=== PATIENT | female | born 1995 | race African-American/Black ===

== ENCOUNTER 2016-07-15 12:37 | Emergency (ER) | payer OTHER ==
[2016-07-15 12:46] VITALS: BP 127/80; PULSE 84; TEMP 98.2; BMI 26.6
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
== END 2016-07-15 14:42 | disposition home or self-care (01) ==
LOC: JERFT 12:37
DX: M79.5 Residual foreign body in soft tissue (principal); Z18.10 Retained metal fragments, unspecified; Z87.828 Personal history of other (healed) physical injury and trauma
CPT/HCPCS: 73090-TC-RT; 84703; 99281-25

== ENCOUNTER 2020-07-26 19:00 | Inpatient (IN) | payer OTHER ==
[2020-07-26] MEDS ORDERED: BUTORPHANOL TARTRATE 1 MG/ML VIAL IVPB PRN (20:02)
[2020-07-26] MEDS ORDERED: ELECTROLYTE-148 SOLN 1,000 ML IV SCH (20:15)
[2020-07-26 20:44] VITALS: BMI 37.4
[2020-07-26] MEDS ORDERED: OXYTOCIN 30 UNITS in 0.9% NS 30 UNIT/500 ML INFUS.BAG IVPB ONE (21:21)
[2020-07-26 21:43] LABS: BASO % 0.3 % (0-2.0); EOS % 1.1 % (0-4.5); HEMATOCRIT 36.4 % (32.4-45.2); LYMPH % 20.3 % (8-40); MCH 27.2 pg (25.7-33.7); MCHC 33.1 g/dl (32.0-36.0); MEAN CELL VOLUME 82.2 fl (80-96); MEAN PLT VOLUME 9.6 fl (7.5-11.1); MONO % 7.6 % (3.8-10.2); NEUT % 70.7 % (42.8-82.8); PLATELET COUNT 231 K/MM3 (134-434); RBC 4.43 M/mm3 (3.60-5.2); RDW 16.2 % (11.6-15.6)
[2020-07-26] MEDS ORDERED: OXYTOCIN 30 UNITS in 0.9% NS 30 UNIT/500 ML INFUS.BAG IVPB SCH (21:45)
[2020-07-26 21:57] LABS: INR 0.92 (0.83-1.09); PROTHROMBIN TIME (PATIENT) 11.3 SEC (9.7-13.0)
[2020-07-26 22:00] LABS: ACTIVATED PTT 28.3 SECONDS (25.2-36.5)
[2020-07-26 22:02] LABS: CALCIUM 8.4 mg/dL (8.5-10.1)
[2020-07-26 22:06] LABS: CREATININE 0.5 mg/dL (0.55-1.3)
[2020-07-27] MEDS ORDERED: AMPICILLIN SODIUM 2 GM VIAL ONE (01:45)
[2020-07-27] MEDS ORDERED: AMPICILLIN SODIUM 2 GM VIAL IVPB ONE (01:45)
[2020-07-27] MEDS ORDERED: BUTORPHANOL TARTRATE 2 MG/ML VIAL ONE (02:51)
[2020-07-27] MEDS ORDERED: FENTANYL/BUPIVACAINE/NS/PF - PCEA - 50 ML DISP.SYRIN EP ONE ×2 (04:29→09:32)
[2020-07-27] MEDS ORDERED: PCA PUMP NR ONE ×2 (04:29→09:32)
[2020-07-27] MEDS ORDERED: BUPIVACAINE HCL/PF 0.25% (2.5MG/ML) 10 ML VIAL ONE (04:46)
[2020-07-27] MEDS: FENTANYL/BUPIVACAINE/NS/PF - PCEA - 50 ML DISP.SYRIN EP SCH ×2 (05:00→09:35)
[2020-07-27] MEDS ORDERED: NALOXONE HCL 0.4 MG/ML VIAL IVPUSH PRN (05:06)
[2020-07-27] MEDS ORDERED: AMPICILLIN SODIUM 1 GM VIAL ONE ×2 (05:45→09:04)
[2020-07-27] MEDS: AMPICILLIN SODIUM 1 GM VIAL IVPB SCH ×2 (05:48→09:11)
[2020-07-27] MEDS ORDERED: OXYTOCIN 20 UNITS in 0.9% NS 20 UNIT/1,000 ML INFUS.BAG IV ONE (08:55)
[2020-07-27] MEDS ORDERED: SODIUM CHLORIDE 100 ML IVPB ONE (09:04)
[2020-07-27] MEDS ORDERED: BENZOCAINE 20% 57 GM BOTTLE TP PRN (09:11)
[2020-07-27] MEDS ORDERED: BISACODYL 10 MG SUPP.RECT PR PRN (09:11)
[2020-07-27] MEDS ORDERED: METHYLERGONOVINE MALEATE 0.2 MG/1 ML AMP IM PRN (09:11)
[2020-07-27] MEDS ORDERED: BENZOCAINE 28 GM HEMORRHOIDAL OINTMENT RC PRN (09:11)
[2020-07-27] MEDS ORDERED: WITCH HAZEL 50% (TUCKS) 40 PAD/JAR PAD TP PRN (09:11)
[2020-07-27] MEDS ORDERED: ACETAMINOPHEN 1000 MG/100 ML VIAL (NON FORMULARY) IVPB ONE (09:15)
[2020-07-27] MEDS ORDERED: OXYTOCIN 20 UNITS in 0.9% NS 20 UNIT/1,000 ML INFUS.BAG IV SCH (09:15)
[2020-07-27] MEDS ORDERED: ACETAMINOPHEN INJECTION 100 ML IVPB ONE (09:38)
[2020-07-27] MEDS ORDERED: LIDOCAINE HCL/EPINEPHRINE/PF 10 ML VIAL ONE (09:49)
[2020-07-27] MEDS ORDERED: CITRIC ACID/SODIUM CITRATE 30 ML UNIT-DOSE CUP PO ONE (10:01)
[2020-07-27] MEDS ORDERED: oxyCODONE HCL 5 MG TABLET PO PRN (10:02)
[2020-07-27] MEDS ORDERED: diphenhydrAMINE HCL 25 MG CAPSULE (FP) PO PRN (10:02)
[2020-07-27] MEDS ORDERED: IBUPROFEN 800 MG/8 ML IJ IVPB PRN (10:02)
[2020-07-27] MEDS ORDERED: ONDANSETRON 4 MG/2 ML VIAL IVPUSH PRN (11:09)
[2020-07-27] MEDS ORDERED: morphine SULFATE/PF 0.5 MG/ML (2cc Syringe - QUVA) EP ONE (11:09)
[2020-07-27 11:34] LABS: CORD BASE EXCESS -6.2 mmol/L (0-2); CORD HCO3 21.6 mmHg (20-29); CORD PCO2 51.1 mmHg (30-78); CORD pH 7.243 (7.14-7.44)
[2020-07-27 11:37] LABS: CORD HCO3 23.6 mmHg (20-29); CORD PCO2 70.3 mmHg (30-78); CORD pH 7.143 (7.14-7.44)
[2020-07-28] MEDS: IBUPROFEN 600 MG TABLET (FP) PO PRN ×3 (08:00→23:02)
[2020-07-28] MEDS: ACETAMINOPHEN 325 MG TABLET (FP) PO PRN ×2 (08:01→23:00)
[2020-07-28] MEDS: SIMETHICONE 80 MG TAB.CHEW (FP) PO PRN ×3 (08:02→23:01)
[2020-07-28 08:14] LABS: BASO % 0.2 % (0-2.0); EOS % 0.3 % (0-4.5); HEMATOCRIT 33.6 % (32.4-45.2); HEMOGLOBIN 11.2 GM/dL (10.7-15.3); LYMPH % 13.4 % (8-40); MCH 27.1 pg (25.7-33.7); MCHC 33.3 g/dl (32.0-36.0); MEAN CELL VOLUME 81.5 fl (80-96); MEAN PLT VOLUME 9.2 fl (7.5-11.1); MONO % 5.7 % (3.8-10.2); NEUT % 80.4 % (42.8-82.8); PLATELET COUNT 201 K/MM3 (134-434); RBC 4.13 M/mm3 (3.60-5.2); RDW 16.3 % (11.6-15.6)
[2020-07-28] MEDS: oxyCODONE HCL 5 MG TABLET PO PRN ×2 (16:13→23:01)
[2020-07-29] MEDS: SIMETHICONE 80 MG TAB.CHEW (FP) PO PRN ×2 (10:13→20:19)
[2020-07-29] MEDS: ACETAMINOPHEN 325 MG TABLET (FP) PO PRN ×2 (10:13→20:19)
[2020-07-29] MEDS: IBUPROFEN 600 MG TABLET (FP) PO PRN ×2 (10:13→20:19)
[2020-07-29] MEDS ORDERED: SENNOSIDES/DOCUSATE COMBO (SENNA PLUS) TABLET (UD) PO PRN (22:00)
[2020-07-30] MEDS: IBUPROFEN 600 MG TABLET (FP) PO PRN (09:05)
[2020-07-30] MEDS: ACETAMINOPHEN 325 MG TABLET (FP) PO PRN (09:07)
[2020-07-30 09:57] VITALS: BP 110/65; PULSE 75; TEMP 97.7
== END 2020-07-30 11:30 | disposition home or self-care (01) | DRG 540 ==
LOC: JLDR 19:00 → J3W 07-27 13:13
PROVIDERS: ADMIT Obstetrics & Gynecology; ATTEND Obstetrics & Gynecology
PROC: 3E0P7VZ Introduction of Hormone into Female Reproductive, Via Natural or Artificial Opening (ICD-10-PCS; 2020-07-26)
PROC: 10D00Z1 Extraction of Products of Conception, Low, Open Approach (ICD-10-PCS; principal; 2020-07-27)
DX: O76 Abnormality in fetal heart rate and rhythm complicating labor and delivery (principal); O41.03X0 Oligohydramnios, third trimester, not applicable or unspecified; Z37.0 Single live birth; O99.214 Obesity complicating childbirth; E66.9 Obesity, unspecified; O75.2 Pyrexia during labor, not elsewhere classified; O99.824 Streptococcus B carrier state complicating childbirth; Z3A.39 39 weeks gestation of pregnancy
CPT/HCPCS: 36415; 36600; 80048; 82803; 85025; 85610; 85730; 86780; 86850; 86900; 86901; 88307-TC; C9803; J0131; U0003; U0005

== ENCOUNTER 2020-10-30 21:18 | Emergency (ER) | payer OTHER ==
[2020-10-30 22:09] VITALS: BP 112/75; PULSE 80; TEMP 98.6; BMI 30.9
== END 2020-10-31 00:37 | disposition home or self-care (01) ==
LOC: JER 21:18
DX: M72.2 Plantar fascial fibromatosis (principal)
CPT/HCPCS: 73630-TC-LT; 99283-25

== ENCOUNTER 2022-07-01 15:22 | Emergency (ER) | payer OTHER ==
[2022-07-01 15:25] VITALS: BP 122/74; PULSE 68; RESP 18; TEMP 98.9; BMI 26.6
[2022-07-01] MEDS ORDERED: ACETAMINOPHEN 1000 MG/100 ML BAG IVPB ONE (16:07)
[2022-07-01] MEDS ORDERED: SODIUM CHLORIDE 1,000 ML IV STA (16:07)
[2022-07-01] MEDS ORDERED: METOCLOPRAMIDE HCL INJECTION 10 MG/2 ML VIAL IVPUSH ONE (16:08)
[2022-07-01] MEDS ORDERED: METOCLOPRAMIDE HCL INJECTION 10 MG/2 ML VIAL ONE (16:24)
[2022-07-01] MEDS ORDERED: ACETAMINOPHEN INJECTION 100 ML IVPB ONE (16:24)
== END 2022-07-01 18:48 | disposition home or self-care (01) ==
LOC: JER 15:22
PROC: 3E033NZ Introduction of Analgesics, Hypnotics, Sedatives into Peripheral Vein, Percutaneous Approach (ICD-10-PCS; principal; 2022-07-01)
PROC: 3E033GC Introduction of Other Therapeutic Substance into Peripheral Vein, Percutaneous Approach (ICD-10-PCS; 2022-07-01)
PROC: 3E0337Z Introduction of Electrolytic and Water Balance Substance into Peripheral Vein, Percutaneous Approach (ICD-10-PCS; 2022-07-01)
DX: S00.83XA Contusion of other part of head, initial encounter (principal); R51.9 Headache, unspecified; Y04.0XXA Assault by unarmed brawl or fight, initial encounter
CPT/HCPCS: 36415; 70450-TC; 84703; 99284-25